=== PATIENT | male | born 1975 | race Caucasian/White ===

== ENCOUNTER 2021-06-22 11:27 | Emergency (ER) | payer SELFPAY ==
[2021-06-22 11:33] VITALS: BP 123/90; PULSE 65; RESP 18; TEMP 36.7; O2SAT 100; BMI 19.3
[2021-06-22 11:50] VITALS: BP 123/90; PULSE 65; RESP 18; TEMP 36.7; O2SAT 100; BMI 19.3
--- NOTE | 2021-06-22 12:36 | HMH.EDUTC ---
[facility] [place] Clinical Impression: Acute bronchitis Qualifiers: Bronchitis organism: unspecified organism Qualified Code(s): J20.9 - Acute bronchitis, unspecified Sinusitis Qualifiers: Sinusitis location: unspecified location Chronicity: unspecified Qualified Code(s): J32.9 - Chronic sinusitis, unspecified Disposition: Home, Self-Care Condition on Discharge: Good Instructions: Sinusitis, Acute Bronchitis, DI for Sinusitis, DI for Acute Bronchitis, Benzonatate Additional Instructions: ? Start antibiotic today. Be sure to complete entire prescription even if feeling better ? Monitor temp. Tylenol every 4 hours as needed and / or ibuprofen every 6 hours as needed ( As long as your primary care physician has told you that it ok to take both. For fever/aches/pains ER if no less than 101 despite Tylenol or Motrin ? Humidifier/vaporizer or hot steamy shower ? Inhaler every 4-6 hours as needed like we discussed. If unsure how to use it, ask pharmacist to demonstrate how. Should help open airways and improve cough, wheezing, and shortness of breath *Tessalon Perles will not cause drowsiness but use at bedtime to help stop cough so that you may get some rest. *Start steroid today. Helps with inflammation therefore, cough and wheezing. Follow directions on the package. Reviewed side effects. Patient reports taking them before. Follow up IMMEDIATELY for new or worsening of symptoms OR no noticeable improvement over the next 48-72 hours. 911 immediately for any life threatening symptoms such as chest pain or difficulty breathing Prescriptions: Albuterol Sulfate [Proventil-HFA 90mcg/puff Inh] 1 - 2 puffs IH Q4HP PRN #1 each PRN Reason: Shortness Of Breath Transmission Status: Pending to [facility] Amoxicillin/Potassium Clav [Augmentin 875-125 Tablet] 1 tab PO Q12H #20 tab Transmission Status: Pending to [facility] predniSONE [Deltasone 10mg tablet] 10 mg PO BID 5 Days #10 tab Transmission Status: Pending to [facility] Benzonatate [Tessalon Perle 100mg Cap*] 100 mg PO TID PRN #30 cap PRN Reason: Cough Transmission Status: Pending to [facility] Referrals: Provider,Referral, [Primary Care Provider] - As needed Forms: Work/School Release Time of Disposition: 12:48 Medical Decision Making - Lennox Inquiry Pt receiving controlled substance: No Lennox was queried for this patient: No Vital Signs: 06/22/21 11:33 06/22/21 11:50 Temperature 98.1 F 98.1 F Temperature Source Oral Oral Pulse Rate [Left Radial] 65 65 Respiratory Rate 18 18 Blood Pressure [Right Arm] 123/90 123/90 Blood Pressure Mean [Right Arm] 101 101 Blood Pressure Source [Right Arm] Automatic Cuff Automatic Cuff Blood Pressure Position [Right Arm] Sitting Sitting 02 Sat by Pulse Oximetry 100 100 Oxygen Delivery Method Room Air Room Air Medical Decision Narrative: Discussed CXR and COVID test and patient declined at this time [facility] [place] - General Stated complaint: sob cough Time Seen by Provider: 06/22/21 12:40 Mode of Arrival: Ambulatory Source of Information: Patient Limitations: No Limitations Description of Symptoms (Recalled from Triage Doc. by RN): c/o coughing and getting short of breath with talking for a few days. Pt states that he has been coughing up mucus. He used a family members inhaler and that seemed to help but it has came back and he was getting short of breath again HEENT Symptoms (Recalled from RN notes): No Resp Symptoms (Recalled from RN notes): Yes Skin Symptoms (Recalled from RN notes): No MS Symptoms (Recalled from RN notes): No Functional Status (Recalled from RN notes): WNL - History of Present Illness Provider Complaint: Patient state that he has been sick for over a week, having sinus pain and pressure along with drainage in the back of his throat and feels like it is trying to move into his chest like Bronchitis State that he has COPD and wanted to get something before it flar
[2021-06-22 12:51] VITALS: BP 123/90; PULSE 65; RESP 18; TEMP 36.7; O2SAT 100
== END 2021-06-22 12:59 | disposition home or self-care (01) ==
PROVIDERS: Emergency Provider Nurse Practitioner
DX: J20.9 Acute bronchitis, unspecified (principal); J32.9 Chronic sinusitis, unspecified; J44.9 Chronic obstructive pulmonary disease, unspecified; F17.210 Nicotine dependence, cigarettes, uncomplicated; Z79.899 Other long term (current) drug therapy
CPT/HCPCS: 99202; G0463

== ENCOUNTER 2021-07-02 20:07 | Emergency (ER) | payer SELFPAY ==
[2021-07-02 20:08] VITALS: BP 154/103; PULSE 91; RESP 18; TEMP 37.6; O2SAT 97; BMI 19.9
--- NOTE | 2021-07-02 20:27 | XR_ITS ---
PROCEDURE INFORMATION: Exam: XR Chest Exam date and time: 07/02/2021 8:27 PM Age: 46 years old Clinical indication: Cough and shortness of breath; Smoker's cough; Patient HX: Cough, congestion, shortness of breath, heavy smoker, possible covid per patient. ; Additional info: Fever TECHNIQUE: Imaging protocol: XR of the chest. Views: 2 views. COMPARISON: CR Chest 05/02/2019 7:19 AM FINDINGS: Lungs: Radiographically mild pulmonary emphysema, similar appearance when compared with prior examination of 05/02/2019. No evidence of alveolar consolidation. Costophrenic angles are clear. There is no evidence of pulmonary vascular congestion. Pleural spaces: Unremarkable. No pleural effusion. No pneumothorax. Heart/Mediastinum: Unremarkable. No cardiomegaly. Bones/joints: Unremarkable. IMPRESSION: Radiographically mild pulmonary emphysema as on prior examination of 05/02/2019. No evidence of acute infiltrate or congestive failure.
[2021-07-02 20:48] LABS: Influenza A, PCR Not Detected (NotDetected); Influenza B, PCR Not Detected (NotDetected)
[2021-07-02 20:50] LABS: Basophils % 0.6 % (0.1-2.0); Eosinophils % 0.8 % (0.1-12.0); Hematocrit 47.6 % (42.0-52.0); Hemoglobin 15.9 g/dL (14.1-18.0); Lymphocytes # 1.8 K/mm3 (0.7-4.5); Lymphocytes % 34.4 % (10-50); Mean Corpuscular HGB Conc 33.3 g/dL (31.8-35.4); Mean Corpuscular Volume 99.2 fl (80-94); Mean Platelet Volume 9.4 fl (7.4-10.4); Monocytes # 0.3 K/mm3 (0.1-1.0); Monocytes % 6.7 % (1.7-9.3); Neutrophils # 2.9 K/mm3 (1.8-7.8); Neutrophils % 57.5 % (37.0-80.0); Platelet Count 135 K/mm3 (142-424); White Blood Count 5.1 K/mm3 (4.8-10.8)
[2021-07-02 20:55] LABS: Chloride 96 mmol/L (98-107); Sodium 135 mmol/L (136-145)
[2021-07-02 20:56] LABS: Potassium 4.4 mmoL/L (3.5-5.1)
[2021-07-02 20:58] LABS: Alanine Aminotransferase 11 U/L (12-78); Albumin Level 4.3 g/dl (3.5-5.0); Albumin/Globulin Ratio 1.2 (1.1-1.8); Alkaline Phosphatase 132 U/L (38-126); Anion Gap 11.4 mEq/L (5-15); Aspartate Amino Transferase 36 U/L (17-59); Bilirubin,Total 0.3 mg/dl (0.2-1.3); Blood Urea Nitrogen 19 mg/dl (9-20); Carbon Dioxide 32 mmol/L (22.0-30.0); Creatinine Clearance Estimated 88 mL/min (50-200); Estimated Glomerular Filt Rate 90 ml/min (>60); GFR (African American) 109 ML/MIN (>60); Globulin 3.6 g/dL (1.3-3.2); Total Protein,Serum 7.9 g/dl (6.3-8.2)
[2021-07-02 20:59] LABS: Calcium 9.3 mg/dl (8.4-10.2); Glucose 85 mg/dl (74-100)
[2021-07-02 21:04] LABS: C-Reactive Protein 32.5 mg/L (0-4)
--- NOTE | 2021-07-02 21:05 | HMH.EDURI ---
ED Disposition Clinical Impression: COVID-19 Disposition: Home, Self-Care Condition on Discharge: Good Instructions: DI for COVID-19 (Suspected or Confirmed ) Additional Instructions: fluids and call in am Referrals: Provider,Referral, [Primary Care Provider] - - Critical Care Critical Care Time: No Attestation: On 07/02/21, the high probability of a clinically significant, sudden or life threatening deterioration of the following system(s) required my full and direct attention, intervention and personal management. The time I documented below is in addition to time spent performing reported procedures but includes the following listed in this critical care notation. Medical Decision Making - Medical Records Medical records reviewed: Yes: I reviewed the patient's medical records. - Lennox Inquiry Pt receiving controlled substance: No Vital Signs: 07/02/21 20:08 Temperature 99.7 F H Temperature Source Oral Pulse Rate [Right] 91 H Respiratory Rate 18 Blood Pressure [Right Arm] 154/103 H Blood Pressure Mean [Right Arm] 120 02 Sat by Pulse Oximetry 97 - Lab Data Lab results reviewed: Yes: I reviewed the patient's lab results. Lab Results 07/02/21 20:20: SARS-CoV-2 (PCR) Detected A, Influenza A Untype (PCR) Not detected, Influenza Type B (PCR) Not detected 07/02/21 20:30: WBC 5.1, RBC 4.80, Hgb 15.9, Hct 47.6, MCV 99.2 H, MCH 33.0 H, MCHC 33.3, RDW 13.0, Plt Count 135 L, MPV 9.4, Neut % (Auto) 57.5, Lymph % (Auto) 34.4, [place] % (Auto) 6.7, Eos % (Auto) 0.8, Baso % (Auto) 0.6, Neut # (Auto) 2.9, Lymph # (Auto) 1.8, [place] # (Auto) 0.3, Eos # (Auto) 0.0, Baso # (Auto) 0.0 07/02/21 20:30: Sodium 135 L, Potassium 4.4, Chloride 96 L, Carbon Dioxide 32 H, Anion Gap 11.4, BUN 19, Creatinine 0.90, Estimated Creat Clear 88, Estimated GFR 90, Est GFR ( Amer) 109, Glucose 85, Calcium 9.3, Total Bilirubin 0.3, AST 36, ALT 11 L, Alkaline Phosphatase 132 H, C-Reactive Protein 32.5 H, Total Protein 7.9, Albumin 4.3, Globulin 3.6 H, Albumin/Globulin Ratio 1.2, Procalcitonin 0.071 Result diagrams: 07/02/21 20:30 07/02/21 20:30 Orders (Tests/Meds): ED MEDICATIONS Generic Name Dose Route Start Last Admin Trade Name Freq PRN Reason Stop Dose Admin Sodium Chloride 1,000 mls @ 999 mls/hr 07/02/21 20:30 07/02/21 20:38 Sod Chlor 0.9% 1000ml Bag IV 07/02/21 21:30 999 mls/hr .Q1H1M LOIS Administration Discontinued Medications Generic Name Dose Route Start Last Admin Trade Name Freq PRN Reason Stop Dose Admin Dexamethasone Sodium Phosphate 10 mg 07/02/21 20:28 07/02/21 20:38 Dexamethasone 4mg/Ml 5ml Mdv IV 07/02/21 20:29 10 mg ONCE ONE Administration Ketorolac Tromethamine 30 mg 07/02/21 20:28 07/02/21 20:38 Ketorolac 30mg/Ml Vial IV 07/02/21 20:29 30 mg ONCE ONE Administration Ondansetron HCl 4 mg 07/02/21 20:28 07/02/21 20:37 Ondansetron 4mg/2ml Vial IV 07/02/21 20:29 4 mg ONCE ONE Administration ORDERS Category Date Time Status Complete Blood Count Auto Diff Stat Lab 07/02/21 20:30 Results Erythrocyte Sedimentation Rate Stat Lab 07/02/21 20:30 Results - Radiology Data #1 Image(s): Chest Image Reviewed: Yes I have reviewed radiologist's interpretation Preliminary Findings: Normal/NAD Medical Decision Narrative: pt with out covid-19 and stable exam and labs URI/Sore Throat HPI - General Chief Complaint: Upper Respiratory Infection Stated Complaint: fever,chills,Vomiting,BARBOSA,Body aches Time Seen by Provider: 07/02/21 21:05 Mode of Arrival: Ambulatory Source of Information: Patient, Medical Record Limitations: No Limitations Description of Symptoms (Recalled from ER Triage Doc. by RN): pt c/o fever,no taste,body ache,chill since thursday was seen in [facility] on thursday aandwas given PCN and steroids - History of Present Illness HPI Narrative: fever and achey with cough and no rash - has been treated for bronchitis MD Complaint: kate
[2021-07-02 21:16] LABS: Coronavirus 19, PCR Detected (NotDetected)
[2021-07-02 21:38] LABS: Procalcitonin 0.071 ng/mL (0.0-2.0)
[2021-07-02 21:57] VITALS: BP 145/83; PULSE 81; RESP 18; TEMP 36.9; O2SAT 97
[2021-07-02 23:14] LABS: Erythrocyte Sedimentation Rate 21 mm/hr (0-15)
== END 2021-07-02 21:58 | disposition home or self-care (01) ==
PROVIDERS: Emergency Provider Emergency Medicine
DX: U07.1 COVID-19 (principal); F17.210 Nicotine dependence, cigarettes, uncomplicated
CPT/HCPCS: 71046; 80053; 84145; 85025; 85651; 86140; 96365; 96375; 99283; J2405; U0003

== ENCOUNTER 2022-03-25 19:44 | Emergency (ER) | payer OTHER, SELFPAY ==
[2022-03-25 19:45] VITALS: BP 180/99; PULSE 80; RESP 16; TEMP 36.6; O2SAT 97; BMI 21.5
--- NOTE | 2022-03-25 20:08 | HMH.EDUROGM ---
ED Disposition Clinical Impression: Pain in scrotum without trauma of scrotum Disposition: Home, Self-Care Condition on Discharge: Good Instructions: DI for Testicular Pain Additional Instructions: recheck if any problems Referrals: Provider,Referral, [Primary Care Provider] - - Critical Care Critical Care Time: No Attestation: On 03/25/22, the high probability of a clinically significant, sudden or life threatening deterioration of the following system(s) required my full and direct attention, intervention and personal management. The time I documented below is in addition to time spent performing reported procedures but includes the following listed in this critical care notation. Medical Decision Making - Medical Records Medical records reviewed: Yes: I reviewed the patient's medical records. - Lennox Inquiry Pt receiving controlled substance: No Vital Signs: 03/25/22 19:45 Temperature 97.9 F Temperature Source Oral Pulse Rate [Left Radial] 80 Respiratory Rate 16 Blood Pressure [Right Arm] 180/99 H Blood Pressure Mean [Right Arm] 126 Blood Pressure Source [Right Arm] Automatic Cuff Blood Pressure Position [Right Arm] Sitting 02 Sat by Pulse Oximetry 97 Oxygen Delivery Method Room Air Medical Decision Narrative: no def acute sig abn - some bruising s/p surg bute rt inguinal testicular exam - ok- pt declined u/s at this time Male Urogenital HPI - General Chief complaint: Urogenital-Male Stated complaint: Surg 03/21 Hernia repair Time Seen by Provider: 03/25/22 20:08 Mode of Arrival: Ambulatory Source of Information: Patient, Spouse, Medical Record Limitations: No Limitations Description of Symptoms (Recalled from ER Triage Doc. by RN): HERNIA REPAIR ON THURSDAY. TODAY- BRUISING, SWELLING AND PAIN IN SCROTUM AND PAIN WITH URINATION. PT STATES HE WAS ONLY GIVEN MOTRIN FOR PAIN POST SURG. - History of Present Illness HPI Narrative: pt with recent inguinal and abd surg with concern about rt tersticle swollen and ecchymosis Complaint: testicle swelling Onset (ago): hour(s) Duration: intermittent Location: right testicle Severity: moderate recent surgery Reports: denies other symptoms - Related Data Previous Rx's Medication Instructions Recorded Amoxicillin/Potassium Clav 1 tab PO Q12H #20 tab 05/02/19 [Augmentin 875-125 Tablet] Benzonatate [Tessalon Perle 100mg 100 mg PO TIDP PRN #20 cap 05/02/19 Cap] Ibuprofen [Ibuprofen 600mg Tab] 600 mg PO Q6HP PRN #20 tab 05/02/19 Albuterol Sulfate [Proventil-HFA 1 - 2 puffs IH Q4HP PRN #1 each 06/22/21 90mcg/puff Inh] Amoxicillin/Potassium Clav 1 tab PO Q12H #20 tab 06/22/21 [Augmentin 875-125 Tablet] Benzonatate [Tessalon Perle 100mg 100 mg PO TID PRN #30 cap 06/22/21 Cap*] predniSONE [Deltasone 10mg tablet] 10 mg PO BID 5 Days #10 tab 06/22/21 Allergies Allergy/AdvReac Type Severity Reaction Status Date / Time No Known Allergies Allergy Verified 07/07/18 00:14 [facility] History - Hepatitis A Screen Attestation statement:: This patient has been screened for Hepatitis A risk factors. I have reviewed the patient's past medical history: Yes Medical History: Denies:: Cancer, Diabetes Mellitus Type 1, Diabetes Mellitus Type 2, MRSA Amputation: No Fractures: Yes (PINS) - Social History Smoking Status: Current every day smoker Tobacco Type: cigarettes # Packs/Day (cigarettes): 1 Alcohol Intake: never Alcohol Intake Frequency:: holidays/special occasions only Substance Use Type: marijuana Occupational Status: employed ROS Obtained: Yes All systems reviewed & no additional complaints - Constitutional Constitutional: Denies fever(s) - Eyes Eyes: Denies change in vision - ENT Ears, Nose, Mouth, and Throat: Denies sore throat - Cardiovascular Cardiovascular: Denies chest pain - Respiratory Respiratory: Denies shortness of breath - Gastrointestinal Gastrointestingal: Denies: vomiting - Angela
[2022-03-25 20:23] VITALS: BP 164/88; PULSE 78; RESP 16; TEMP 36.6; O2SAT 96
== END 2022-03-25 20:24 | disposition home or self-care (01) ==
PROVIDERS: Emergency Provider Emergency Medicine
DX: N50.82 Scrotal pain (principal); R30.9 Painful micturition, unspecified; Z98.890 Other specified postprocedural states; Z72.0 Tobacco use
CPT/HCPCS: 99212; G0463

== ENCOUNTER 2022-10-15 13:28 | Emergency (ER) | payer OTHER, SELFPAY ==
[2022-10-15 15:45] VITALS: BP 155/100; PULSE 90; RESP 18; TEMP 36.8; O2SAT 95; BMI 22.2
--- NOTE | 2022-10-15 15:48 | ECG_ITS ---
APPROVED REPORT Exam: Resting ECG HR:90 bpm ECG Measurements Heart Rate 90 AXES IN 136 P 77 QRSd 69 QRS 76 QT 322 T 74 QTc 370 Conclusion SINUS RHYTHM Biatrial abnormality BORDERLINE ECG UNCONFIRMED REPORT Electronically signed by : Carloz Powell MD 10/17/2022 16:55:03
--- NOTE | 2022-10-15 15:53 | XR_ITS ---
FINAL REPORT CLINICAL HISTORY: concern for pneumonia COMPARISON: June 2021 FINDINGS: The heart size is normal. The mediastinum is within normal limits. There is no acute cardiopulmonary process. There is no pleural effusion. There is no pneumothorax. The bony thorax is intact. IMPRESSION: No acute cardiopulmonary process. Reviewed, Interpreted and Dictated by Rubén Hatfield III, MD Transcribed by Toni Hatch Authenticated and [facility]
[2022-10-15 15:56] VITALS: BMI 22.2
[2022-10-15 16:27] LABS: Basophils # 0.1 K/mm3 (0-0.2); Basophils % 1.2 % (0.1-2.0); Eosinophils # 0.2 K/mm3 (0.0-0.4); Eosinophils % 2.2 % (0.1-12.0); Hematocrit 44.6 % (42.0-52.0); Hemoglobin 14.2 g/dL (14.1-18.0); Lymphocytes # 2.2 K/mm3 (0.7-4.5); Mean Corpuscular HGB Conc 31.7 g/dL (31.8-35.4); Mean Corpuscular Hemoglobin 31.7 pg (27.0-31.2); Mean Corpuscular Volume 99.9 fl (80-94); Mean Platelet Volume 8.4 fl (7.4-10.4); Monocytes # 0.4 K/mm3 (0.1-1.0); Monocytes % 6.2 % (1.7-9.3); Neutrophils # 3.9 K/mm3 (1.8-7.8); Neutrophils % 58.5 % (37.0-80.0); Platelet Count 283 K/mm3 (142-424); Red Blood Count 4.47 M/mm3 (4.60-6.20); Red Cell Distribution Width 12.6 % (11.5-17.5); White Blood Count 6.7 K/mm3 (4.8-10.8)
[2022-10-15 16:28] LABS: Alanine Aminotransferase 15 U/L (12-78); Albumin Level 4.1 g/dl (3.5-5.0); Albumin/Globulin Ratio 1.1 (1.1-1.8); Alkaline Phosphatase 170 U/L (38-126); Anion Gap 9.5 mEq/L (5-15); Aspartate Amino Transferase 37 U/L (17-59); Bilirubin,Total 0.3 mg/dl (0.2-1.3); Blood Urea Nitrogen 7 mg/dl (9-20); Calcium 9.6 mg/dl (8.4-10.2); Carbon Dioxide 33 mmol/L (22.0-30.0); Chloride 95 mmol/L (98-107); Creatinine Clearance Estimated 112 mL/min (50-200); Estimated Glomerular Filt Rate 103 ml/min (>60); GFR (African American) 125 ML/MIN (>60); Globulin 3.8 g/dL (1.3-3.2); Glucose 114 mg/dl (74-100); Potassium 3.5 mmoL/L (3.5-5.1); Sodium 134 mmol/L (136-145); Total Protein,Serum 7.9 g/dl (6.3-8.2)
[2022-10-15 16:33] LABS: C-Reactive Protein 129.3 mg/L (0-4)
[2022-10-15 16:37] VITALS: BP 155/100; PULSE 92; O2SAT 95
[2022-10-15 16:44] LABS: Procalcitonin 0.167 ng/mL (0.0-2.0)
[2022-10-15 17:10] VITALS: BP 156/95; PULSE 85; RESP 20; TEMP 36.8; O2SAT 93
--- NOTE | 2022-10-15 19:37 | HMH.EDGENADL ---
Discharge Plan Disposition Patient Disposition: Home, Self-Care Condition: Fair Prescriptions Prescriptions: New azithromycin [Zithromax Z-Howard] 250 mg tablet See Rx Instructions .ROUTE .COMPLEX Qty: 6 0RF Rx Instructions: For 250 mg dose pack: take 500 mg today (day 1), then 250 mg for 4 days (days 2-5) prednisone 50 mg tablet 50 mg PO DAILY 5 Days Qty: 5 0RF No Action benzonatate 100 MG capsule 100 mg PO TIDP PRN (Reason: Cough) Qty: 20 0RF ibuprofen 600 MG tablet 600 mg PO Q6HP PRN (Reason: Moderate Pain) Qty: 20 0RF amoxicillin-pot clavulanate 1 EACH tablet 1 tab PO Q12H Qty: 20 0RF prednisone 10 MG tablet 10 mg PO BID 5 Days Qty: 10 0RF benzonatate 100 MG capsule 100 mg PO TID PRN (Reason: Cough) Qty: 30 0RF albuterol sulfate 200 PUFFS HFA aerosol inhaler 1 - 2 puffs IH Q4HP PRN (Reason: Shortness Of Breath) Qty: 1 0RF amoxicillin-pot clavulanate 1 EACH tablet 1 tab PO Q12H Qty: 20 0RF Referrals Follow up/Referrals: Provider,Referral, MD [Primary Care Provider] - See instructions Clinical Impressions Clinical Impression: Bronchitis Instructions Patient Instructions: DI for Acute Bronchitis Discharge ED Provider: Surinder Lopez General Adult HPI General Chief complaint: Shortness of Breath/Dyspnea Stated complaint: congestion, soa Time Seen by Provider: 10/15/22 15:45 Mode of Arrival: Ambulatory Source of Information: Patient Limitations: No Limitations Description of Symptoms (Recalled from ER Triage Doc. by RN): PT REPORTS CONGESTION AND SHORTNESS OF BREATH FOR 3 DAYS. REPORTS FEVER History of Present Illness HPI narrative: Patient is a 47-year-old male with a past medical history of COPD who presents with concern for congestion and shortness of breath. He says that his symptoms have been happening for the last 3 to 4 days. He endorses subjective fevers. He is not checked his temperature at home. He says he decided come in today because he was off work and he has been coughing up quite a bit of green sputum. Denies any chest pain. He says he feels a little bit more short of breath than normal. Denies any orthopnea. Denies any pleuritic chest pain. Denies any leg swelling. Related Data Previous Rx's Medication Instructions Recorded amoxicillin 875 mg-potassium 1 tab PO Q12H #20 tabs 05/02/19 clavulanate 125 mg tablet benzonatate 100 mg capsule 100 mg PO TIDP PRN Cough #20 caps 05/02/19 ibuprofen 600 mg tablet 600 mg PO Q6HP PRN Moderate Pain 05/02/19 #20 tabs albuterol sulfate 90 mcg/actuation 1 - 2 puffs IH Q4HP PRN Shortness 06/22/21 aerosol inhaler Of Breath #1 ea amoxicillin 875 mg-potassium 1 tab PO Q12H #20 tabs 06/22/21 clavulanate 125 mg tablet benzonatate 100 mg capsule 100 mg PO TID PRN Cough #30 caps 06/22/21 prednisone 10 mg tablet 10 mg PO BID 5 days #10 tabs 06/22/21 azithromycin 250 mg tablet See Rx Instructions PO .COMPLEX #6 10/15/22 (Zithromax Z-Howard) tabs prednisone 50 mg tablet 50 mg PO DAILY 5 days #5 tabs 10/15/22 Allergies Allergy/AdvReac Type Severity Reaction Status Date / Time No Known Allergies Allergy Verified 07/07/18 00:14 [facility] Disclaimer: The information contained in this section may have been updated after the patient was seen, as this information can be updated by other users. Social History Smoking Status: Current every day smoker tobacco type: cigarettes packs per day: 1 alcohol intake: never substance use type: marijuana current occupational status: employed Travel in the last 8 weeks: None ROS Obtained: Yes All systems reviewed & no additional complaints except as documented A 14 point review of system was obtained and otherwise negative except per HPI Physical Exam General General appearance: alert and in no apparent distress Head Head exam: atraumatic, normocephalic and normal inspection Eye Eye exam: Present normal appearance, PERRL and EOMI E
== END 2022-10-15 17:13 | disposition home or self-care (01) ==
PROVIDERS: Emergency Provider Student in an Organized Health Care Education/Training Program
DX: R50.9 Fever, unspecified (principal); R05.9 Cough, unspecified; R09.81 Nasal congestion; J44.9 Chronic obstructive pulmonary disease, unspecified; F17.210 Nicotine dependence, cigarettes, uncomplicated; Z79.1 Long term (current) use of non-steroidal anti-inflammatories (NSAID); Z79.51 Long term (current) use of inhaled steroids; Z79.52 Long term (current) use of systemic steroids
CPT/HCPCS: 71045; 80053; 84145; 85025; 86140; 93005; 99284